=== PATIENT | female | born 1975 | race African-American/Black ===

== ENCOUNTER 2016-03-24 05:00 | Day surgery (SDC) | payer OTHER ==
[2016-03-22 11:30] VITALS: BMI 41.5
[2016-03-24] MEDS ORDERED: BUPIVACAINE HCL/PF 0.5% (5MG/ML) 10 ML VIAL ONE (07:46)
[2016-03-24] MEDS ORDERED: LIDOCAINE HCL 1%, 10 MG/ML (20ML VIAL) ONE (07:46)
[2016-03-24] MEDS ORDERED: PROPOFOL 20 ML ONE ×3 (07:52→08:27)
[2016-03-24] MEDS ORDERED: MIDAZOLAM HCL 2 MG/2 ML SINGLE DOSE VIAL ONE (07:52)
[2016-03-24] MEDS ORDERED: ROCURONIUM BROMIDE 50 MG/5 ML VIAL ONE (07:53)
[2016-03-24] MEDS ORDERED: ceFAZolin SODIUM 1 GM VIAL IVPB ONE (08:30)
[2016-03-24] MEDS ORDERED: ceFAZolin SODIUM 1 GM VIAL ONE (08:36)
[2016-03-24] MEDS ORDERED: BUPIVACAINE HCL/PF 0.5% (5MG/ML) 10 ML VIAL IJ ONE ×2 (08:46→09:45)
[2016-03-24] MEDS ORDERED: LIDOCAINE HCL/PF 2% SDV 5ML VIAL ONE (08:56)
[2016-03-24] MEDS ORDERED: KETOROLAC TROMETHAMINE 30 MG/1 ML VIAL ONE (08:56)
[2016-03-24] MEDS ORDERED: DEXAMETHASONE SOD PHOSPHATE 4 MG/1 ML VIAL ONE (08:56)
[2016-03-24] MEDS ORDERED: NEOSTIGMINE METHYLSULFATE 0.5 MG/ML - 10 ML MDV ONE (09:29)
[2016-03-24] MEDS ORDERED: GLYCOPYRROLATE 0.2 MG/1 ML VIAL ONE (09:29)
--- NOTE | 2016-03-24 09:45 | OP ---
Operative Note - Note: Operative Date: 03/24/16 Pre-Operative Diagnosis: left knee patella tendon rupture Operation: left knee patella tendon repair Implants: fiber wire Surgeon: Og Canada Heating And Ventilating Worker: Neel Madsen Anesthesiologist/RESIDENTIAL NURSE: Josselin Nichole MD Anesthesia: General, Local Estimated Blood Loss (mls): 0 Blood Volume Replaced (mls): 0 Fluid Volume Replaced (mls): 500 Operative Report Dictated: Yes
--- NOTE | 2016-03-24 10:03 | HP ---
[facility] - Chief Complaint Chief Complaint: left knee tendon tear - Past Medical History Allergies/Adverse Reactions: Allergies Allergy/AdvReac Type Severity Reaction Status Date / Time No Known Drug Allergies Allergy Verified 03/24/16 06:57 ...LMP: 03/01/16 - Current Medications Current Medications: Medication Instructions Recorded Ibuprofen [Advil -] 200 mg PO PRN PRN 03/22/16 [facility]ellite Physical Exam - Physical Examination Vital Signs: Vital Signs Period Temp Pulse Resp BP Sys/Denney Pulse Ox Last 24 Hr 98.2 F 104 18 142/74 98 General Appearance: Well Nourished, Well Developed, Alert & Oriented x3, Obese ENT: Clear Lung: Normal air movement Heart: Regular rate & rhythm Extremities: Other (left knee- + swelling, + ttp, unable to actively extend LE, nvi MRI + patella tendon rupture) Neurological: Intact, Alert, Oriented [facility] Impression/Plan - Impression/Plan Impression: left patella tendon rupture Operative Procedure: left patella tendon repair Date to be Performed: 03/24/16
[2016-03-24] MEDS ORDERED: PROMETHAZINE HCL 25 MG/1 ML VIAL IVPUSH PRN (10:06)
[2016-03-24] MEDS ORDERED: oxyCODONE HCL 5 MG TABLET PO PRN (10:06)
[2016-03-24] MEDS ORDERED: ONDANSETRON 4 MG/2 ML VIAL IVPUSH PRN (10:06)
[2016-03-24] MEDS ORDERED: LACTATED RINGERS SOLUTION 1,000 ML IV SCH (10:15)
--- NOTE | 2016-03-24 11:47 | OP ---
DATE OF OPERATION: 03/24/2016 PREOPERATIVE DIAGNOSIS: Left patellar tendon rupture. POSTOPERATIVE DIAGNOSIS: Left patellar tendon rupture. PROCEDURE: Left patellar tendon repair. SURGEON: Og Canada MD CONSUMER INSIGHT MANAGER: SUE Mix ANESTHESIA: LMA anesthesia, local injection of 10 mL 0.5% Marcaine. DRAINS: None. COMPLICATIONS: None. SPECIMENS: None. IMPLANTS: FiberWire. BLOOD LOSS: None. BLOOD GIVEN: None. FLUID REPLACEMENT: 500 mL. INDICATIONS: This patient is a 40-year-old female with preoperative diagnosis of an acute left patellar tendon rupture. After understanding the potential risks, complications, alternatives, benefits to surgery versus nonsurgical treatment, the patient elected to undergo this procedure. She understands she may have permanent stiffness and may require physical therapy and may need additional surgery or may get a postoperative infection. She understands this and other potential risks and complications, which were discussed and has elected to go forward with surgery. DESCRIPTION OF PROCEDURE: The patient was brought to the operating room. Peripheral IV place. IV sedation given. LMA anesthesia was induced. Left lower extremity was prepped and draped in the usual sterile fashion, elevated, and exsanguinated with an Esmarch bandage and tourniquet inflated to 300 mmHg. A longitudinal incision was marked out and made. Then 10 mL of 0.5% Marcaine was injected in and around the surgical incision. Subcutaneous hemostasis was achieved with a Bovie cautery. Dissection was done through the patella bursa and to the anterior aspect of the patella. An inflammatory and bloody hematoma was removed. The patient had a complete patellar tendon rupture off of the inferior pole of the patella. The area was copiously irrigated and washed out. Some acute inflammatory tissue removed. A curette was used to freshen up the edges of the inferior pole of the patella as well as the top surface of the patellar tendon. There was 1 flap of the patellar tendon that I would later use for a supplemental [id number] repair. Three FiberWire sutures were placed in a running, locking fashion up and down the lateral then up and down the medial aspect of the patellar tendon. Another one was put down the middle. Next, a Beath pin was used to feed the FiberWires through from the inferior to the superior pole of the patella. It all came together quite nicely. Bovie was used to cut down through the distal aspect of the quadriceps tendon in a longitudinal manner to tie the sutures over the top of the patellar tendon. The FiberWires were tied to each other. It all came together quite nicely. The patellar tendon easily came onto the inferior pole of the patellar tendon. Next, a 0 Vicryl suture was used to repair the medial and lateral aspect of the patellar tendon as well as medial and lateral aspect of the retinaculum and then this flap of the patellar tendon over the top of the repair. It all came together quite nicely. The area was copiously irrigated and washed out. Then 0 Vicryl was used to close the deep adipose layer, 2-0 Vicryl was used to close the deep dermal layer, and final skin reapproximation was done with the running, subcuticular 3-0 Monocryl. The area was then washed, dried, and covered with SwiftSet skin glue, Aquacel dressing, 4x4s, Webril, Lucien bandage, and a knee immobilizer was applied. Tourniquet was taken down after a total tourniquet time of about 50 minutes. There were no complications during the case. The patient tolerated the procedure well and was brought to the ambulatory recovery room in stable condition. Aurelia [id number]
[2016-03-24 15:54] VITALS: BP 147/73; TEMP 98.2
[2016-03-24 16:02] VITALS: PULSE 90
== END 2016-03-24 14:45 | disposition home or self-care (01) ==
LOC: JASU-SURG 05:00
PROVIDERS: ATTEND Orthopaedic Surgery
PROC: 0LQR0ZZ Repair Left Knee Tendon, Open Approach (ICD-10-PCS; principal; 2016-03-24 08:00)
DX: S76.112A Strain of left quadriceps muscle, fascia and tendon, initial encounter (principal); X58.XXXA Exposure to other specified factors, initial encounter; Y93.9 Activity, unspecified; Y92.9 Unspecified place or not applicable; Y99.9 Unspecified external cause status
CPT/HCPCS: 84703; 94760; 97116-GP